=== PATIENT | male | born 1950 | race Caucasian/White ===

== ENCOUNTER 2020-06-25 19:03 | Emergency (ER) | payer MEDICARE, OTHER ==
[2020-06-25 19:22] LABS: BASOPHIL 0.8 % (0-2); EOSINOPHIL 3.8 % (0-7); HCT 42.1 % (42.0-52.0); HGB 14.5 g/dl (13.2-18.0); LYMPHOCYTE 38.4 % (15-48); MCH 32.4 pg (25.0-31.0); MCHC 34.4 g/dL (32.0-36.0); MCV 94.2 fL (78.0-100.0); MONOCYTE 8.2 % (0-12); NEUTROPHIL 48.5 % (41-80); NRBC 0; PLT 205 K/uL (150-400); RBC 4.47 M/uL (4.70-6.00); RDW 13.5 % (11.5-14.0); WBC 9.2 K/uL (4.0-10.5)
[2020-06-25 19:32] LABS: INR 1.11 (0.9-1.2); PROTHROMBIN TIME 13.6 SECONDS (11.4-13.6); PTT 33.3 SECONDS (22.2-34.7)
[2020-06-25 19:38] LABS: BUN/CREAT RATIO (CALC) 22.9 RATIO; CREATININE 0.83 mg/dL (0.67-1.17)
[2020-06-25 22:11] LABS: HCT 37.2 % (42.0-52.0); HGB 12.6 g/dL (13.2-18.0)
== END 2020-06-26 01:05 | disposition other institution (70) ==
LOC: FER 19:03
PROVIDERS: Student in an Organized Health Care Education/Training Program
DX: R04.0 Epistaxis (principal); I10 Essential (primary) hypertension; J44.9 Chronic obstructive pulmonary disease, unspecified; F17.210 Nicotine dependence, cigarettes, uncomplicated; Z87.820 Personal history of traumatic brain injury
CPT/HCPCS: 36415; 71045; 80048; 85014; 85018; 85025; 85610; 85730; 94640; 94760; 96374; 96375; 96376; J2250; J2405; J2930; J3010; J7030

== ENCOUNTER 2020-07-02 18:39 | Emergency (ER) | payer MEDICARE, OTHER | END 2020-07-02 22:45 | disposition home or self-care (01) | LOC: FER 18:39 | DX: R04.0 Epistaxis (principal); I10 Essential (primary) hypertension; J44.9 Chronic obstructive pulmonary disease, unspecified; Z79.899 Other long term (current) drug therapy | CPT/HCPCS: 99283; C9046 ==

== ENCOUNTER 2020-07-03 01:16 | Emergency (ER) | payer MEDICARE, OTHER ==
[2020-07-03 01:42] LABS: BASOPHIL 0.4 % (0-2); EOSINOPHIL 1.3 % (0-7); HCT 30.1 % (42.0-52.0); HGB 10.1 g/dl (13.2-18.0); MCH 32.6 pg (25.0-31.0); MCHC 33.6 g/dL (32.0-36.0); MCV 97.1 fL (78.0-100.0); MONOCYTE 7.2 % (0-12); MPV 9.6 fL (6.0-9.5); NEUTROPHIL 60.7 % (41-80); NRBC 0; PLT 307 K/uL (150-400); RDW 13.8 % (11.5-14.0); WBC 13.4 K/uL (4.0-10.5)
== END 2020-07-03 04:57 | disposition other institution (70) ==
LOC: FER 01:16
PROVIDERS: Student in an Organized Health Care Education/Training Program
DX: R04.0 Epistaxis (principal); D62 Acute posthemorrhagic anemia; I10 Essential (primary) hypertension; J44.9 Chronic obstructive pulmonary disease, unspecified; F17.210 Nicotine dependence, cigarettes, uncomplicated
CPT/HCPCS: 36415; 85025; J2250; J2405; J3010

== ENCOUNTER 2020-07-06 20:03 | Emergency (ER) | payer MEDICARE, OTHER ==
[2020-07-06 20:28] LABS: BASOPHIL 0.5 % (0-2); EOSINOPHIL 2.4 % (0-7); HCT 26.3 % (42.0-52.0); HGB 8.7 g/dl (13.2-18.0); LYMPHOCYTE 30.8 % (15-48); MCH 33.1 pg (25.0-31.0); MCHC 33.1 g/dL (32.0-36.0); MONOCYTE 8.4 % (0-12); NEUTROPHIL 57.6 % (41-80); NRBC 0; PLT 298 K/uL (150-400); RBC 2.63 M/uL (4.70-6.00); RDW 14.7 % (11.5-14.0); WBC 8.7 K/uL (4.0-10.5)
[2020-07-06 20:40] LABS: INR 1.2 (0.9-1.2); PROTHROMBIN TIME 14.4 SECONDS (11.4-13.6); PTT 32.6 SECONDS (22.2-34.7)
== END 2020-07-06 23:20 | disposition other institution (70) ==
LOC: FER 20:03
PROVIDERS: Student in an Organized Health Care Education/Training Program
DX: R04.0 Epistaxis (principal); I10 Essential (primary) hypertension; F17.210 Nicotine dependence, cigarettes, uncomplicated; J44.9 Chronic obstructive pulmonary disease, unspecified; Z86.79 Personal history of other diseases of the circulatory system
CPT/HCPCS: 36415; 71045; 74018; 85025; 85610; 85730; 94760; 96374; 96375; J0330; J2060; J2250; J2405; J2704; J3010; J7030